=== PATIENT | male | born 1995 ===

== ENCOUNTER 2020-09-11 16:47 | Emergency (ER) | payer SELFPAY ==
[~2020-09-11] VITALS: Ht 167.6 cm; Wt 67.1 kg
[2020-09-11 17:10] VITALS: BP 132/88
== END 2020-09-11 21:17 | disposition home or self-care (01) ==
LOC: ER 16:47
DX: S89.91XA Unspecified injury of right lower leg, initial encounter (principal); X58.XXXA Exposure to other specified factors, initial encounter; Y93.89 Activity, other specified; Y92.89 Other specified places as the place of occurrence of the external cause; Y99.8 Other external cause status
CPT/HCPCS: 73590; 93971